=== PATIENT | female | born 1995 | race Caucasian/White ===

== ENCOUNTER 2018-08-22 14:08 | Emergency (ER) | payer OTHER ==
[~2018-08-22] VITALS: Ht 165.1 cm; Wt 77.1 kg
[~2018-08-22 14:08] MED LIST: ACETAMINOPHEN-1 EAC1 PO; AMITRIPTYLINE H10 M1; AMOXICILLIN 50500 M1 PO; BENTYL20 MG PO; BUSPIRONE HCL10 MG PO; CIPROFLOXACIN250 M2 OR; CORTISPORIN OTI10 ML OTIC; HYDROCODONE-APA1 TA1 PO; NOHOMEMEDICATIONS; NORCO 5-325 TA1 EACH PO; PENICILLIN VK500 MG PO; PHENERGAN 25 MG25 M1 PO; PREVACID 24HR15 MG PO; PYRIDIUM200 MG PO; SERTRALINE HCL50 MG PO; ZOFRAN ODT4 MG PO
[2018-08-22 14:46] LABS: URINE BILIRUBIN NEGATIVE (Negative); URINE BLOOD 1+ (Negative); URINE CLARITY CLEAR; URINE COLOR YELLOW; URINE GLUCOSE-RANDOM NEGATIVE (Negative); URINE KETONES NEGATIVE (Negative); URINE NITRITE-REFLEX NEGATIVE (Negative); URINE PROTEIN TRACE (Negative); URINE UROBILINOGEN 0.2 E.U./dl (0.2-1.0)
[2018-08-22 14:55] LABS: URINE LEUKOCYTES-REFLEX 3+ (Negative)
[2018-08-22 15:18] LABS: CASTS None Seen /LPF (None Seen); CRYSTALS None Seen /LPF (None Seen); MUCUS 0-3 Light strn/LPF (None Seen); SQUAMOUS NONE SEEN /LPF (0-3); URINE RBC 0-2 Rare /HPF (0-2); URINE WBC-REFLEX 6-15 Few /HPF (0-5)
[2018-08-22] MEDS ORDERED: PYRIDIUM200 M2 PO (15:26)
[2018-08-22] MEDS ORDERED: MACROBID 100 M100 M2 PO (15:26)
[2018-08-22 15:39] VITALS: BP 135/95
== END 2018-08-22 15:39 | disposition home or self-care (01) ==
LOC: M.ERS 14:08
PROVIDERS: Nurse Practitioner
DX: N39.0 Urinary tract infection, site not specified (principal); F32.9 Major depressive disorder, single episode, unspecified; F41.9 Anxiety disorder, unspecified

== ENCOUNTER 2020-03-08 13:12 | Observation (INO) | payer OTHER ==
[~2020-03-08] VITALS: Ht 165.1 cm; Wt 74.8 kg
--- NOTE | ~2020-03-08 | H ---
[address] [address] HISTORY AND PHYSICAL Name: NINI DESAI Room: [address] Bernardo Lewis#: [id number] Admission: 03/08/20 Attend Phys: Munira Kaufman DO Discharge: 03/09/20 Date of : [birth year] Report #: [id number] THIS REPORT FOR: cc: FAM - No family physician/PCP FAM - No family physician/PCP ~ [facility],Medical Records Staff For History and Physical please refer to the consultation note in the patient's medical record. By: 1450Medical Records Staff [facility] /IAMEE
[~2020-03-08 13:12] MED LIST changes: +MACROBID 100 M100 M2 PO; +PYRIDIUM200 M2 PO
[2020-03-08 13:25] VITALS: BP 138/98
[2020-03-08 13:36] LABS: ABSOLUTE EOSINOPHILS 0.1 thou/uL (0.0-0.7); ABSOLUTE LYMPHOCYTES 2.7 thou/uL (0.8-5.3); ABSOLUTE MONOCYTES 0.8 thou/uL (0.0-1.2); ABSOLUTE NEUTROPHILS 9.1 thou/uL (1.6-8.1); BASOPHILS 0.3 %; EOSINOPHILS 1.1 %; HEMATOCRIT 43.4 % (37.0-47.0); HEMOGLOBIN 14.6 gm/dL (12.0-15.0); LYMPHOCYTES 21.1 %; MCH 29.9 pg (26.0-34.0); MCHC 33.5 g/dL (28.0-37.0); MCV 89.1 fL (80.0-100.0); MONOCYTES 6.1 %; MPV 8.2 fl. (7.2-11.1); NUCLEATED RBCS 0 /100WBC; PLATELET COUNT* 222 thou/uL (150-400); POLYS 71.4 %; RBC 4.87 mil/uL (4.20-5.00); RDW-CV 13.5 % (10.5-14.5); WBC 12.8 thou/uL (4.0-11.0)
[2020-03-08 13:48] LABS: CALCIUM 9.6 mg/dL (8.5-10.1); CREATININE 0.9 mg/dL (0.6-1.3); POTASSIUM 3.8 mmol/L (3.5-5.1)
[2020-03-08 13:54] LABS: ALBUMIN 3.8 g/dL (3.4-5.0); TOTAL BILIRUBIN 0.6 mg/dL (<0.1-1.0); TOTAL PROTEIN 8.3 g/dL (6.4-8.2)
[2020-03-08 14:24] LABS: URINE BILIRUBIN NEGATIVE (Negative); URINE BLOOD NEGATIVE (Negative); URINE CLARITY CLEAR; URINE COLOR YELLOW; URINE GLUCOSE-RANDOM NEGATIVE (Negative); URINE KETONES NEGATIVE (Negative); URINE LEUKOCYTES-REFLEX 1+ (Negative); URINE NITRITE-REFLEX NEGATIVE (Negative); URINE PROTEIN TRACE (Negative); URINE SPECIFIC GRAVITY 1.025 (1.005-1.030); URINE UROBILINOGEN 0.2 E.U./dl (0.2-1.0)
[2020-03-08 14:31] LABS: BACTERIA-REFLEX 1-9 Few /HPF (None Seen); CASTS None Seen /LPF (None Seen); CRYSTALS None Seen /LPF (None Seen); SQUAMOUS 0-3 Few /LPF (0-3); URINE RBC 0-2 Rare /HPF (0-2); URINE WBC-REFLEX 0-5 Rare /HPF (0-5)
--- NOTE | 2020-03-08 17:05 | EKG ---
[place] [address] ELECTROCARDIOGRAM REPORT Name: NINI DESAI Room: [facility]#: [id number] Admission: 03/08/20 Attend Phys: Discharge: Date of : [birth year] Date of Service: 03/08/20 1335 Report #: [id number] THIS REPORT FOR: //name// [facility] ED Test Date: 2020-03-08 Test Time: 13:35:30 Pat Name: NINI DESAI Department: Room: Gender: Deck Scaler: [facility] : 1995 Requested By: Shilpa Martin Order Number: [id number] MD: Tomas Fried Measurements Intervals [place] Rate: 100 P: 19 VT: 141 QRS: -1 QRSD: 88 T: 13 QT: 336 QTc: 434 Interpretive Statements Sinus tachycardia Baseline wander in lead(s) V1 No previous ECG available for comparison Electronically Signed On 03-08-2020 17:05:01 REO ASSET MANAGER by Tomas Fried [email or web address] <ELECTRONICALLY SIGNED> By: Tomas Fried MD, [facility] 03/08/20 1705 1335 1335 Tomas Fried MD, FACC /EPI
[2020-03-08 17:55] VITALS: BP 125/70
[2020-03-09] VITALS: BP 106/71
[2020-03-09 03:56] VITALS: BP 108/70
[2020-03-09 07:30] VITALS: BP 117/63
[2020-03-09 08:16] VITALS: BP 117/63
[2020-03-09 12:10] VITALS: BP 117/63
--- NOTE | 2020-03-10 13:25 | OP ---
[address] [address] OPERATIVE REPORT Name: NINI DESAI Room: [address] Bernardo Lewis#: [id number] Admission: 03/08/20 Attend Phys: Munira Kaufman DO Discharge: 03/09/20 Date of : [birth year] Report #: [id number] THIS REPORT FOR: cc: FAM - No family physician/PCP FAM - No family physician/PCP ~ Munira Kaufman DO DATE OF SERVICE: 03/08/2020 PREOPERATIVE DIAGNOSIS: Acute cholecystitis with cholelithiasis without obstruction. POSTOPERATIVE DIAGNOSES: Acute cholecystitis with cholelithiasis without obstruction. FINDINGS: Hugely distended gallbladder with several large stones. There was a stone impacted in the neck of the gallbladder. SURGEON: Munira Kaufman DO COSURGEON: Clinton Reyes, PGY5 BATTERY PLATE ASSEMBLER: DONOVAN Sun. PROCEDURE PERFORMED: Laparoscopic cholecystectomy. ANESTHESIA: General endotracheal with local and tap's blocks. ESTIMATED BLOOD LOSS: 5. DRAINS: None. SPECIMENS: Gallbladder. COMPLICATIONS: None. CONDITION: Stable. DISPOSITION: PACU to the floor. HISTORY OF PRESENT ILLNESS: The patient is a very pleasant 24-year-old female who presented to the ER this afternoon with complaint of acute onset upper abdominal pain. She had intermittent bouts of this previously and knew that she had gallstones. CT scan and ultrasound were positive for acute cholecystitis and white count was elevated. There appeared to be a stone, which was trapped in the neck of the gallbladder. She was then consented for laparoscopic [address] [address] OPERATIVE REPORT Name: NINI DESAI Room: [address] Bernardo Lewis#: [id number] Admission: 03/08/20 Attend Phys: Munira Kaufman DO Discharge: 03/09/20 Date of : [birth year] Report #: [id number] cholecystectomy. Risks discussed included bleeding, infection, pain, scar formation, injury to bowel, liver or bile duct, hernia at the incision sites, need for an open procedure and risks of general anesthesia. The patient understood these risks and elected to proceed. DESCRIPTION OF PROCEDURE: The patient was brought to the operating room. She was laid supine on the operating room table. SCDs were placed on bilateral lower extremities. The patient was on Zosyn in the perioperative period. General endotracheal anesthesia was induced by Anesthesia without difficulty. Tap's blocks were then also provided by Anesthesia without issue. Abdomen was prepped and draped in standard sterile fashion. Timeout was performed to verify patient and procedure. A 10 mL of 0.5% Marcaine were injected in the infraumbilical area. Incision was made with 11 blade. Cautery was used for hemostasis. S retractors were used to visualize the fascia. Fascia was grasped and elevated between 2 Kochers. Fascia was incised using cautery. Peritoneum was bluntly entered using a Annette clamp. Finger was introduced into the abdomen to assure that there were no rc-incisional adhesions, none were identified. Two stitches of 0 Vicryl were placed on the fascia. A Javier trocar was introduced and secured with 0 Vicryl stitches. Abdomen was insufflated. The patient was placed up and tilted left side down. Camera was introduced and a brief anterior abdominal exploration was undertaken with findings of a hugely distended gallbladder. Three 5 mm trocars were then introduced, one in the subxiphoid area and two in the right upper quadrant, all under direct visualization. Gallbladder was so distended that it was tense and we were unable to grab the gallbladder. An aspiration needle was introduced and approximately 30 mL of thick foul smelling bile were aspirated with excellent decompression of the gallbladder. We were then able to grab the gallbladder and raised towards the patient's head. The triangle of Calot was then easily visualized. Peritoneum overlying the triangle was incised using cautery. Duct and artery were then both easily visualized, both were circumferentially dissected free using a [place] dissector. Any tissues posterior to the artery were removed. This then afforded the critical view. Duct and artery were then doubly clipped and ligated. Gallbladder was then removed from the liver bed with some difficulty again due to the excessive size of the gallbladder. Specimen was placed within an EndoCatch bag. Liver bed was inspected and appeared to be hemostatic. Clips were inspected. There was no bleeding or leakage noted from the area of the clips. Right upper quadrant was irrigated until clear. Trocars were removed under direct visualization. There was no bleeding noted from the peritoneum. Abdomen was then completely desufflated. Javier trocar was removed and EndoCatch bag was removed after extending the fascial incision due to the excessive size of the gallbladder. Multiple large stones were palpated within the gallbladder. It was then handed off for permanent pathology. Kochers were placed on the fascia of our infraumbilical port. Previously placed 0 Vicryl stitches were removed and a 0 Vicryl stitch was placed in [id number] fashion with excellent approximation of the [address] [address] OPERATIVE REPORT Name: NINI DESAI Room: [address] Bernardo Lweis#: [id number] Admission: 03/08/20 Attend Phys: Munira Kaufman DO Discharge: 03/09/20 Date of : [birth year] Report #: [id number] fascia. An additional 10 mL of 0.5% Marcaine were injected in the fascia. All wounds were then closed with 4-0 Monocryl. A total of 30 mL of 0.5% Marcaine were used to anesthetize the wounds. Wounds were then cleansed and covered with Dermabond. The patient was then allowed to awaken from anesthesia, was extubated and transported to the recovery room with no further difficulties. Counts were correct x 2 at the conclusion of the case. <ELECTRONICALLY SIGNED> By: Munira Kaufman DO 03/10/20 1325 2056 [id number] Kaufman DO /nt
--- NOTE | 2020-03-14 18:06 | PATH ---
[address] [address] PATHOLOGY RPT PROCEDURE Name: NINI DESAI Lisbeth [address]: [address]#: [id number] Admission: 03/08/20 Date of : [birth year] Discharge: 03/09/20 Report #: [id number] Path Case #: [id number] [facility] Accession Number: [id number] . 01 Material submitted: . gallbladder - GALLBLADDER AND CONTENTS . 01 Clinical history: . ACUTE CHOLECYSTITIS WITH CHOLELITHIASIS . 02 Diagnosis: Gallbladder and contents: - Chronic and acute erosive cholecystitis with mural fibrosis and cholelithiasis. (NOEMI:sherrie; 03/14/2020) [facility] 03/14/2020 1201 Local . 02 Electronically signed: . Raymundo Dixon MD, Pathologist NPI- [id number] . 01 Gross description: . Received in formalin labeled "Fili, Nini, gallbladder and contents" is an intact cholecystectomy specimen measuring 11.8 x 3.6 x 3.6 cm. The serosa is red-purple and hemorrhagic and the specimen is opened to reveal pale yip-purple trabeculated mucosa without polyps or masses. The average wall thickness is 0.2 cm. Within the gallbladder are two ovoid green-brown calculi measuring 1.5 and 2.7 cm in greatest dimension. Property Caretaker sections of the fundus and body and the cystic duct margin are submitted in A1. ([facility]; 03/10/2020) [facility] 03/10/2020 1302 Local . 02 Pathologist provided ICD-10: K80.12 . 02 CPT . 705007 Specimen Comment: A courtesy copy of this report has been sent to [phone] Specimen Comment: Report sent to Performed at: [address], [place], [place] [id number] MD Sami Villar MD Phone: [phone] Performed at: 02 [facility] [address], [place], [place] [id number] MD Raymundo Dixon MD Phone: [phone]
== END 2020-03-09 11:30 | disposition home or self-care (01) ==
LOC: M.ERS 13:12 → M.TBA-ER 17:21 → M.ERS 17:21 → M.TBA-ER 22:19 → M.3W 22:30
PROVIDERS: Nurse Practitioner Family; ADMIT Surgery; ATTEND Surgery
DX: K80.00 Calculus of gallbladder with acute cholecystitis without obstruction (principal); F41.9 Anxiety disorder, unspecified; F32.9 Major depressive disorder, single episode, unspecified